=== PATIENT | male | born 1955 | race African-American/Black ===

== ENCOUNTER 2019-03-11 18:52 | Emergency (ER) | payer MEDICARE, MEDICAID ==
[~2019-03-11] VITALS: Ht 175.3 cm; Wt 106.0 kg
[2019-03-11 21:25] VITALS: BP 106/72
== END 2019-03-11 21:26 | disposition home or self-care (01) ==
LOC: ER 20:39
DX: K61.0 Anal abscess (principal); I10 Essential (primary) hypertension
CPT/HCPCS: 99283

== ENCOUNTER 2019-10-01 10:40 | Emergency (ER) | payer MEDICARE, MEDICAID ==
[~2019-10-01] VITALS: Ht 180.3 cm; Wt 100.0 kg
[2019-10-01] MEDS ORDERED: DIPHENHYDRAMINE 50MG/ML VIAL IM ONE (11:30)
[2019-10-01 12:10] VITALS: BP 140/80
== END 2019-10-01 12:10 | disposition home or self-care (01) ==
LOC: ER 10:40
DX: K43.9 Ventral hernia without obstruction or gangrene (principal); R21 Rash and other nonspecific skin eruption; I10 Essential (primary) hypertension
CPT/HCPCS: 96372; 99283; J1200

== ENCOUNTER 2019-11-04 09:28 | Emergency (ER) | payer MEDICARE, MEDICAID ==
[~2019-11-04] VITALS: Ht 182.9 cm; Wt 66.0 kg
[2019-11-04 10:42] LABS: BASOPHILS % 0.9 % (0.0-2.0); EOSINOPHILS % 3.2 % (0.0-5.0); HEMATOCRIT. 43.4 % (42.0-52.0); HEMOGLOBIN. 14.9 g/dL (14.0-18.0); LYMPHOCYTES % 20.5 % (20.0-50.0); MEAN CORPUSCULAR HEMOGLOBIN 29.7 pg (28.0-32.0); MEAN CORPUSCULAR VOLUME 86.8 fL (80.0-94.0); MONOCYTES % 7.8 % (2.0-8.0); NEUTROPHILS % 67.6 % (40.0-76.0); RED CELL DISTRIBUTION WIDTH 13.1 % (11.6-14.6)
[2019-11-04 10:47] LABS: CHLORIDE 109 mEq/L (98-107)
[2019-11-04 10:49] LABS: PROTHROMBIN TIME 10.3 sec (9.6-11.0)
[2019-11-04 11:09] LABS: PLATELET 90 x1000/uL (130-400)
[2019-11-04 13:27] LABS: CLARITY URINE CLEAR (CLEAR); COLOR URINE RED (YELLOW); KETONES URINE NEGATIVE (NEGATIVE); LEUKOCYTE ESTERASE URINE NEGATIVE (NEGATIVE); NITRITE URINE NEGATIVE (NEGATIVE); OCCULT BLOOD URINE 3+ (NEGATIVE); PH URINE >=9.0 (4.5-8.0); PROTEIN URINE NEGATIVE (NEGATIVE); SPECIFIC GRAVITY URINE 1.031 (1.005-1.030); UROBILINOGEN URINE 0.2 E.U./dL (0.2-1.0)
[2019-11-04 14:47] VITALS: BP 190/103
[2019-11-04] MEDS ORDERED: IOHEXOL-300 100 ML BOTTLE ONE (15:43)
== END 2019-11-04 15:09 | disposition home or self-care (01) ==
LOC: ER 09:44
DX: R31.9 Hematuria, unspecified (principal); K92.1 Melena; I10 Essential (primary) hypertension; K59.00 Constipation, unspecified
CPT/HCPCS: 36415; 74177; 80053; 81003; 83690; 85025; 85610; 99284; Q9967

== ENCOUNTER 2022-01-02 03:44 | Emergency (ER) | payer MEDICARE, MEDICAID ==
[~2022-01-02] VITALS: Ht 182.9 cm; Wt 111.0 kg
[2022-01-02 09:39] LABS: CLARITY URINE CLEAR (CLEAR); COLOR URINE YELLOW (YELLOW); KETONES URINE NEGATIVE (NEGATIVE); LEUKOCYTE ESTERASE URINE NEGATIVE (NEGATIVE); NITRITE URINE NEGATIVE (NEGATIVE); OCCULT BLOOD URINE 3+ (NEGATIVE); PROTEIN URINE NEGATIVE (NEGATIVE); SPECIFIC GRAVITY URINE 1.006 (1.005-1.030); UROBILINOGEN URINE 0.2 E.U./dL (0.2-1.0)
[2022-01-02 10:02] VITALS: BP 147/89
== END 2022-01-02 10:03 | disposition home or self-care (01) ==
LOC: ER 03:44
DX: Z46.6 Encounter for fitting and adjustment of urinary device (principal); R31.0 Gross hematuria; N40.1 Benign prostatic hyperplasia with lower urinary tract symptoms; I10 Essential (primary) hypertension
CPT/HCPCS: 81003; 99283; A4315

== ENCOUNTER 2022-01-03 19:44 | Emergency (ER) | payer MEDICARE, MEDICAID ==
[~2022-01-03] VITALS: Ht 182.9 cm; Wt 111.0 kg
[2022-01-03 20:35] VITALS: BP 148/43
== END 2022-01-03 22:58 | disposition home or self-care (01) ==
LOC: ER 19:44
DX: T83.091A Other mechanical complication of indwelling urethral catheter, initial encounter (principal); X58.XXXA Exposure to other specified factors, initial encounter; I10 Essential (primary) hypertension
CPT/HCPCS: 99281

== ENCOUNTER 2022-01-18 12:51 | Emergency (ER) | payer MEDICARE, MEDICAID ==
[~2022-01-18] VITALS: Ht 177.8 cm; Wt 125.0 kg
[2022-01-18 12:54] VITALS: BP 139/95
== END 2022-01-18 16:46 | disposition left against medical advice (07) ==
LOC: ER 12:51
DX: Z53.21 Procedure and treatment not carried out due to patient leaving prior to being seen by health care provider (principal)

== ENCOUNTER 2024-05-27 13:20 | Emergency (ER) | payer MEDICARE, MEDICAID ==
[~2024-05-27] VITALS: Ht 182.9 cm; Wt 91.0 kg
[2024-05-27 13:31] VITALS: O2SAT 96
[2024-05-27 17:09] LABS: CLARITY URINE CLOUDY (CLEAR); COLOR URINE BLOODY (YELLOW)
[2024-05-27 17:10] LABS: GLUCOSE URINE NEGATIVE (NEGATIVE); KETONES URINE TRACE (NEGATIVE); LEUKOCYTE ESTERASE URINE 1+ (NEGATIVE); NITRITE URINE POSITIVE (NEGATIVE); OCCULT BLOOD URINE 3+ (NEGATIVE); PROTEIN URINE 3+ (NEGATIVE); SPECIFIC GRAVITY URINE 1.015 (1.005-1.030)
[2024-05-27 17:12] LABS: RBC URINE TNTC /hpf (0-2)
[2024-05-27 17:19] LABS: SQUAMOUS EPITHELIAL CELL URINE NONE SEEN /lpf (RARE/1+)
[2024-05-27 17:21] LABS: BACTERIA URINE 1+
[2024-05-27 21:43] VITALS: BP 143/100; RESP 16; TEMP 98.4
[2024-05-27] MEDS ORDERED: LEVO-65 MT (22:45)
[2024-05-27] MEDS ORDERED: TAMS-11 MT (22:45)
[2024-05-27] MEDS: LEVOFLOXACIN 500MG TABLET PO ONE (23:06)
[2024-05-27 23:07] VITALS: PULSE 59
[2024-05-27] MEDS: TAMSULOSIN HCL 0.4MG SR CAPSULE PO ONE (23:07)
== END 2024-05-27 23:31 | disposition home or self-care (01) ==
LOC: ER 13:20
DX: R31.9 Hematuria, unspecified (principal); N39.0 Urinary tract infection, site not specified; I10 Essential (primary) hypertension; Z98.890 Other specified postprocedural states; N40.0 Benign prostatic hyperplasia without lower urinary tract symptoms
CPT/HCPCS: 81003; 99285